=== PATIENT | female | born 1980 | race Caucasian/White ===

== ENCOUNTER 2017-04-28 13:40 | Emergency (ER) | payer OTHER ==
[2017-04-28 16:58] LABS: CALCIUM 8.3 mg/dL (8.5-10.1); CARBON DIOXIDE 28.4 mmol/L (21-32); CHLORIDE SERUM 101 mmol/L (98-107); CREATININE SERUM 0.6 mg/dL (0.6-1.0); GFR1 > 60 mL/min; GLUCOSE SERUM 96 mg/dL (74-106); POTASSIUM SERUM 4.5 mmol/L (3.5-5.1); SODIUM SERUM 134 mmol/L (136-145)
[2017-04-28 16:59] LABS: BASOPHIL % 0.3 % (0-2); PLATELET COUNT 175 x10^3mcL (130-400); RED CELL DISTRIBUTION WIDTH 14.1 % (11.5-14.5)
[2017-04-28 17:03] LABS: ALKALINE PHOSPHATASE 74 U/L (46-116); ALT/SGPT 33 U/L (14-59); AMYLASE 36 U/L (25-115); AST/SGOT 45 U/L (15-37); LIPASE 83 IU/L (73-393)
[2017-04-28 17:06] LABS: ALBUMIN 3.2 g/dL (3.4-5.0)
[2017-04-28 17:47] VITALS: BP 128/79
== END 2017-04-28 17:47 | disposition home or self-care (01) ==
LOC: ED 13:40
PROVIDERS: Emergency Medicine
DX: R10.30 Lower abdominal pain, unspecified (principal)
CPT/HCPCS: 83880; 87491; 87591; J1885